=== PATIENT | male | born 1940 | race Caucasian/White ===

== ENCOUNTER → 2017-03-04 | Outpatient (CLI) | payer MEDICARE, OTHER ==
[~2017-03-04] MED LIST: ASPI-1441 PO; ASPI-1471 PO; ASPI81TA94 PO; BLOO-1318 MC; CALC-635 PO; CALC1TAB46 PO; CALC500T42 PO; CIPR-214 PO; EZE10 PO; FISH OIL; GEMF600T91 PO; GLY25 PO; GLY5 PO; LEVO100T7 PO; LEVO200T44 PO; MET500 PO; METF-420 PO; OMEG-11 PO; OMEG1CAP60 PO; OXC300 PO; OXCA300T44 PO; OXYG1EAC; PER PO; PHEN100 PO; PHEN100C82 PO; PNEI IJ; WAR2 PO; [UNRECOGNIZED DRUG - OTHER] SC
[2017-03-04 11:39] LABS: INR 1.98
== END ==
LOC: LAB 11:15
PROVIDERS: ATTEND Physician Assistant Surgical
DX: Z79.01 Long term (current) use of anticoagulants (principal)
CPT/HCPCS: 36415; 85610

== ENCOUNTER → 2017-03-08 | Outpatient (CLI) | payer MEDICARE, OTHER ==
[2017-03-08 11:42] LABS: INR 2.96
== END ==
LOC: LAB 11:10
PROVIDERS: ATTEND Physician Assistant Surgical
DX: Z51.81 Encounter for therapeutic drug level monitoring (principal); Z79.01 Long term (current) use of anticoagulants
CPT/HCPCS: 36415; 85610

== ENCOUNTER → 2017-03-17 | Outpatient (CLI) | payer MEDICARE, OTHER ==
[2017-03-17 12:04] LABS: INR 1.1
== END ==
LOC: LAB 11:15
PROVIDERS: ATTEND Physician Assistant Surgical
DX: Z51.81 Encounter for therapeutic drug level monitoring (principal); Z79.01 Long term (current) use of anticoagulants
CPT/HCPCS: 36415; 85610

== ENCOUNTER → 2018-08-01 | Outpatient (CLI) | payer MEDICARE, OTHER ==
[~2018-08-01] MED LIST changes: -GEMF600T91 PO; +GEMF600T96 PO; +LEVO125T77 PO; +LEVO175T42 PO; -METF-420 PO; +METF-452 PO; +METH4TAB66 PO
[2018-08-01 13:24] LABS: PLATELET COUNT, AUTOMATED 429 K/uL (150-450)
[2018-08-01 13:28] LABS: LDL CHOLESTEROL 54 mg/dl
--- NOTE | 2018-08-01 14:01 | EKG ---
FACILITY: [facility] PATIENT NAME: LIZA CASTANON : [id number] MR: [id number] V: [id number] EXAM DATE: ORDERING PHYSICIAN: DONTE MCKEON TECHNOLOGIST: SHERYL Stroud Reason : Blood Pressure : / mmHG Vent. Rate : 067 BPM Atrial Rate : 067 BPM P-R Int : 244 ms QRS Dur : 102 ms QT Int : 408 ms P-R-T Axes : 025 -54 029 degrees QTc Int : 431 ms Sinus rhythm with 1st degree AV block Left axis deviation Abnormal ECG No previous ECGs available Referred By: ROB Confirmed By:
--- NOTE | 2018-08-01 14:12 | RADIOLOGY IMAGING REPORT ---
FACILITY: [facility] PATIENT NAME: Yakov Sanford : 1940 MR: [id number] V: [id number] EXAM DATE: ORDERING PHYSICIAN: DONTE MCKEON TECHNOLOGIST: Location: [facility] Patient: Yakov Sanford : 1940 Visit/Account:[id number] Date of Sevice: 08/01/2018 CHEST PA LAT HISTORY: Dyspnea. COMPARISON: March,. FINDINGS: Cardiomediastinal contours: The heart size is normal. Lungs and pleura: There is no finding of an infiltrate, lymphadenopathy or pleural effusion. Bones/soft tissues: There are fractures involving ribs 6 and 7 on the right side. They are chronic i n nature and well-healed. There has been prior surgery in the glenoid process on the right side. Is a calcified loose body in the right glenohumeral joint. IMPRESSION: 1. No active disease in chest. 2. Healed rib fractures on the right side PA Report Dictated By: David Snow MD at 08/01/2018 2:06 PM Report E-Signed By: David Snow MD at 08/01/2018 2:07 PM WSN:[id number]
== END ==
LOC: LAB 13:01
PROVIDERS: ATTEND Emergency Medicine
DX: R94.31 Abnormal electrocardiogram [ECG] [EKG] (principal); I44.0 Atrioventricular block, first degree; R07.9 Chest pain, unspecified; R06.00 Dyspnea, unspecified; E03.9 Hypothyroidism, unspecified; E11.9 Type 2 diabetes mellitus without complications; Z83.49 Family history of other endocrine, nutritional and metabolic diseases; E87.5 Hyperkalemia; G40.909 Epilepsy, unspecified, not intractable, without status epilepticus
CPT/HCPCS: 36415; 71046; 80185; 82040; 82247; 82310; 82374; 82435; 82465; 82565; 82947; 83036; 83540; 83550; 83718; 83880; 84075; 84132; 84155; 84295; 84443; 84450; 84460; 84478; 84484; 84520; 85025; 85379

== ENCOUNTER → 2018-08-02 | Outpatient (CLI) | payer MEDICARE, OTHER ==
[~2018-08-02] MED LIST changes: +FERR325T24 PO; +NAPR220C12 PO
[2018-08-02 11:59] LABS: PLATELET COUNT, AUTOMATED 412 K/uL (150-450)
== END ==
LOC: LAB 10:49
PROVIDERS: ATTEND Emergency Medicine
DX: D64.9 Anemia, unspecified (principal); E11.9 Type 2 diabetes mellitus without complications
CPT/HCPCS: 36415; 82009; 85025

== ENCOUNTER → 2018-08-08 | Outpatient (CLI) | payer MEDICARE, OTHER ==
[~2018-08-08] MED LIST changes: +DEXTROSE 5%(*) 100 ML BAG 100 ML IVPB PRN; +IOPAMIDOL 76% 100 ML INFUS BTL 100 ML ONE; +LIDOCAINE/SOD BICARB 8.4% SYR ID PRN; +NS(*) 0.9% 100 ML BAG 100 ML IVPB PRN; +NS(*) 0.9% 1000 ML BAG 1,000 ML IV PRN
[2018-08-08 13:02] VITALS: BP 141/70
[2018-08-08 13:39] VITALS: BP 138/63
[2018-08-08 13:41] VITALS: BP 127/58
[2018-08-08 13:43] VITALS: BP 132/58
== END ==
LOC: SPU 12:26
PROVIDERS: ATTEND Emergency Medicine
DX: E86.0 Dehydration (principal)
CPT/HCPCS: 96360; J7030

== ENCOUNTER 2018-08-11 00:28 | Day surgery (SDC) | payer MEDICARE, OTHER ==
[2018-08-11] VITALS (9 sets, daily range): BP systolic 103–145; BP diastolic 52–72
[~2018-08-11] VITALS: Ht 175.3 cm; Wt 85.3 kg
[~2018-08-11 00:28] MED LIST changes: -DEXTROSE 5%(*) 100 ML BAG 100 ML IVPB PRN; -IOPAMIDOL 76% 100 ML INFUS BTL 100 ML ONE; -LIDOCAINE/SOD BICARB 8.4% SYR ID PRN; -NS(*) 0.9% 100 ML BAG 100 ML IVPB PRN; -NS(*) 0.9% 1000 ML BAG 1,000 ML IV PRN
[2018-08-11] MEDS ORDERED: NORMOSOL R SOLN(*) 1000 ML BAG 1,000 ML IV PRN (06:30)
[2018-08-11] MEDS ORDERED: LIDOCAINE/SOD BICARB 8.4% SYR ID ONE (06:30)
[2018-08-11] MEDS ORDERED: PROPOFOL EMUL(*) 10MG/ML 20 ML 20 ML ONE ×2 (07:11→07:38)
--- NOTE | 2018-08-11 08:12 | NUR ---
0759 SBAR REPORT WAS RECEIVED FROM KARINA FLOWERS AND DR. MARTINEZ. LUNGS ARE CLEAR. HE ARRIVED ON 3 LITERS HIGH FLOW O2. BOWEL SOUNDS ARE HYPERACTIVE. UNABLE TO ASSESS PAIN OR NAUSEA AT THIS TIME. PATIENT CONTINUES TO SLEEP 08 PATIENT WOKE UP. HE DENIES ANY PAIN OR NAUSEA. HE STATES HE IS JUST DROWSY. 08 SBAR REPORT WAS GIVEN TO Saul PARIS
--- NOTE | 2018-08-11 08:16 | NUR ---
0814 PATIENT WAS MOVED TO ROOM AIR AND IS TOLERATING THIS WELL.
--- NOTE | 2018-08-11 08:42 | NUR ---
PT. PLACED ON RA. RESTING. VO FROM DR. ROSA TO KEEP NPO.
--- NOTE | 2018-08-11 09:04 | Short(Outpt) Discharge Summary ---
Discharge Summary Reason for Hosp/Final Diag: (1) Anemia Hospital Course & Plan: pt presented for egd/colonoscopy. mass found in colon. d/c home after ct and labwork. Departure Discharge to: Home Discharge Instructions Home Meds Active Scripts Levothyroxine Sodium (SYNTHROID) 125 Mcg Tablet, 125 MCG PO QDAY, #45 TAB Prov:DONTE MCKEON MD 08/01/18 Glyburide (GLYBURIDE) 5 Mg Tab, 2 TAB PO BID, #360 TAB 0 Refills Prov:AKIN ZHANG MD 03/23/18 Phenytoin Sodium Extended (DILANTIN) 100 Mg Capsule, 2 CAP PO BID, #360 CAPSULE 3 Refills Prov:AKIN ZHANG MD 03/15/18 Metformin Hcl (METFORMIN HCL) 1,000 Mg Tablet, 1 TAB PO BID, #180 TAB 3 Refills Prov:AKIN ZHANG MD 03/15/18 Gemfibrozil (GEMFIBROZIL) 600 Mg Tablet, 1 TAB PO BID, #180 TAB 3 Refills Prov:AKIN ZHANG MD 03/15/18 Oxcarbazepine (TRILEPTAL) 300 Mg Tablet, 3 TAB PO QDAY, #270 TAB 3 Refills Prov:AKIN ZHANG MD 10/19/17 One Touch Ultra Test Strips (ONE TOUCH ULTRA TEST STRIPS) 1 Each Strip, 100 STRIP MC monthly, #100 STRIP 3 Refills DX:E11.9 use to test BS once daily Prov:AKIN ZHANG MD 04/13/17 Reported Medications Ferrous Sulfate (IRON) 325 Mg Tablet, 325 MG PO 08/03/18 Naproxen Sodium (ALEVE) 220 Mg Capsule, 220 MG PO QDAY, CAPSULE 08/03/18 Diet: Regular Activity: As Tolerated Special Instructions: we will call you with results ALEC ROSA Aug 11, 2018 09:04
[2018-08-11 09:33] LABS: PLATELET COUNT, AUTOMATED 386 K/uL (150-450)
--- NOTE | 2018-08-11 10:08 | NUR ---
pt. to radiology for ct scan. labs done.
--- NOTE | 2018-08-11 10:30 | NUR ---
PT. RETURNED FROM RADIOLOGY. INSTRUCTED OKAY TO DRESS.
--- NOTE | 2018-08-11 10:40 | NUR ---
DISCHARGE INSTRUCTIONS REVIEWED. PT. INSTRUCTED ON METFORMIN USE POST CT SCAN AND ENCOURAGED TO DRINK FLUIDS.
--- NOTE | 2018-08-11 11:07 | RADIOLOGY IMAGING REPORT ---
FACILITY: PATIENT NAME: Yakov Sanford : 1940 MR: [id number] V: [id number] EXAM DATE: ORDERING PHYSICIAN: ALEC ROSA TECHNOLOGIST: [place] [facility] [place]: Yakov Sanford : 1940 Visit/Account:[id number] Date of Sevice: 08/11/2018 CT CHEST ABDOMEN PELVIS W/CON HISTORY: Colon mass TECHNIQUE: CT chest, abdomen and pelvis with intravenous contrast. Contiguous helical images was per formed from the lung apices to the symphysis pubis. One of the following dose optimization techniques was utilized in the performance of this exam: Autom ated exposure control; adjustment of the mA and/or kV according to the patient's size; or use of an i terative reconstruction technique. Specific details can be referenced in the facility's radiology C T exam operational policy. CONTRAST: 75 cc of Isovue-370 COMPARISON: None. FINDINGS: CHEST: Heart/vessels: Subtle hypodensities in the interventricular septum and may indicate a prior infarct. There is calcification of the LAD. Mediastinum: Negative. Lymph nodes: Small mediastinal lymph nodes are noted. Lungs/pleura: Some mild subpleural interstitial prominence is noted could indicate mild interstitial lung disease. Within this setting there is some very small subpleural nodules primarily in the upper lobes measuring approximately 2 to 3 mm which have a benign appearance. No definite pulmonary metast asis. Bones/soft tissues: Patient is osteopenic with degenerative changes. Mild superior plate compression deformity at T4 is of uncertain chronicity. ABDOMEN/PELVIS: Hepatobiliary: There are at least 5 hepatic metastasis with heterogeneous hypodense liver masses. Th yfn will be described below. Segment 4A/1 lesion measures 3 x 2.4 cm () Segment 5/8 lesion measures 1.8 x 1.5 cm () Segment 6 lesion measures 1.8 x 1.6 cm () Segment 6 lesion measures 2 x 1.8 cm () Segment 6 lesion measures 2 x 1.6 cm () The gallbladder is absent. Spleen: Negative. Adrenals: Negative. Kidneys/: Negative. Pancreas: Negative. GI: There is an area of circumferential thickening of the hepatic flexure of the colon measuring 4 c m in length likely the primary neoplasm. Transmural extension of tumor is suspected. No evidence for pathologic regional adenopathy. Patient also has diverticulosis. Vessels/spaces/nodes: Atherosclerotic calcification is noted. Bones/soft tissues: Prominence L4-5 posterior left paracentral disc extrusion is noted measures 1.8 x 1.2 cm. There is effacement of the left L4 nerve root. T12 compression fracture involves 20% of th e vertebral body height. Patient has bilateral hip arthroplasties. IMPRESSION: 1. Circumferential thickening of the hepatic flexure of the colon extending over distance of nearly 4 cm likely the primary colon neoplasm. Transmural extension of tumor is suspected. No pathologic reg ional adenopathy. 2. At least 5 hepatic metastases are identified and described above. 3. No definite metastatic disease elsewhere. 4. Prominent disc extrusion at L4-5 extending into the left paracentral recess. If the patient is hav ing symptoms of back pain, consider an MRI of the lumbar spine. Report Dictated By: Bradley Dhillon MD at 08/11/2018 10:36 AM Report E-Signed By: Bradley Dhillon MD at 08/11/2018 11:03 AM WSN:[id number]
== END 2018-08-11 10:50 | disposition home or self-care (01) ==
LOC: OR 00:28
PROVIDERS: ATTEND Surgery
DX: K29.70 Gastritis, unspecified, without bleeding (principal); C18.2 Malignant neoplasm of ascending colon
CPT/HCPCS: 00813; 36415; 36416; 43239; 45380; 45385; 71260; 74177; 82378; 82948; 85025; 87077; 88305; 88342; J2704; Q9967; 82040; 82247; 82310; 82374; 82435; 82565; 82947; 84075; 84132; 84155; 84295; 84450; 84460; 84520

== ENCOUNTER 2018-09-04 15:33 | Emergency (ER) | payer MEDICARE, OTHER ==
--- NOTE | 2018-09-04 15:41 | ER Report ---
History and Physical Time Seen By MD: 15:39 HPI/ROS CHIEF COMPLAINT: Hyperkalemia HISTORY OF PRESENT ILLNESS: 77-year-old male patient presents to emergency room with complaint of hyperkalemia. Patient states that he has had hyperkalemia for the past couple weeks. He was seen at the cancer center and received an iron infusion for his anemia. He states that at that time they rechecked his potassium. He is found to have potassium of 6.8 and was referred to emergency room for further evaluation. Patient denies any fevers, chills, nausea, vomiting or diarrhea. He states that he has taken any medication for this. He states he feels fine at this time. REVIEW OF SYSTEMS: Respiratory: No cough, no dyspnea. Cardiovascular: No chest pain, no palpitations. Gastrointestinal: No vomiting, no abdominal pain. Musculoskeletal: No back pain. Allergies: Coded Allergies: influenza virus vaccine, specific (Unverified Allergy, Intermediate, fever, 12/20/17) Home Meds Active Scripts Glyburide (GLYBURIDE) 5 Mg Tab, 2 TAB PO BID, #60 TAB 0 Refills Prov:DONTE MCKEON MD 08/24/18 Levothyroxine Sodium (SYNTHROID) 125 Mcg Tablet, 125 MCG PO QDAY, #45 TAB Prov:DONTE MCKEON MD 08/01/18 Phenytoin Sodium Extended (DILANTIN) 100 Mg Capsule, 2 CAP PO BID, #360 CAPSULE 3 Refills Prov:AKIN ZHANG MD 03/15/18 Metformin Hcl (METFORMIN HCL) 1,000 Mg Tablet, 1 TAB PO BID, #180 TAB 3 Refills Prov:AKIN ZHANG MD 03/15/18 Gemfibrozil (GEMFIBROZIL) 600 Mg Tablet, 1 TAB PO BID, #180 TAB 3 Refills Prov:AKIN ZHANG MD 03/15/18 Oxcarbazepine (TRILEPTAL) 300 Mg Tablet, 3 TAB PO QDAY, #270 TAB 3 Refills Prov:AKIN ZHANG MD 10/19/17 One Touch Ultra Test Strips (ONE TOUCH ULTRA TEST STRIPS) 1 Each Strip, 100 STRIP MC monthly, #100 STRIP 3 Refills DX:E11.9 use to test BS once daily Prov:AKIN ZHANG MD 04/13/17 Reported Medications Ferrous Sulfate (IRON) 325 Mg Tablet, 325 MG PO 08/03/18 Naproxen Sodium (ALEVE) 220 Mg Capsule, 220 MG PO QDAY, CAPSULE 08/03/18 Past Medical/Surgical History Patient has past medical 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 Patient has a surgical history of cholecystectomy, left femur surgery, thumb amputation, bilateral hip replacement, bilateral shoulder surgery, right rotator cuff surgery, tonsillectomy. Reviewed Nurses Notes: Yes Smoking Status: Former Smoker, Heavy Tobacco Smoker Exposure to Second Hand Smoke?: Yes Hx Substance Use Disorder: No Hx Alcohol Use: No Constitutional Vital Sign - Last 24 Hours 09/04/18 09/04/18 09/04/18 09/04/18 15:33 15:37 15:41 16:00 Temp 98.3 Pulse ??? 87 Resp 20 B/P (MAP) 131/83 (99) 131/83 118/61 (80) Pulse Ox 94 O2 Delivery Room Air 09/04/18 09/04/18 09/04/18 16:03 16:30 16:33 Pulse 82 76 Resp 7 8 B/P (MAP) 110/64 (79) Pulse Ox 94 96 Physical Exam General Appearance: The patient is alert, has no immediate need for airway p rotection and no current signs of toxicity. Respiratory: Chest is non tender, lungs are clear to auscultation. Cardiac: regular rate and rhythm Gastrointestinal: Abdomen is soft and non tender, no masses, bowel sounds normal. Musculoskeletal: Neck: Neck is supple and non tender. Extremities have full range of motion and are non tender. Skin: No rashes or lesions. DIFFERENTIAL DIAGNOSIS: After history and physical exam differential diagnosis was considered for hyperkalemia, hyperglycemia. Medical Decision Making Data Points Result Diagram: 09/04/18 1556 09/04/18 1556 Laboratory Hematology Test 09/04/18 15:56 Red Blood Count 3.97 M/uL (4.00-5.60) Mean Corpuscular Volume 76.7 fL (80.0-96.0) Mean Corpuscular Hemoglobin 23.7 pg (26.0-33.0) Mean Corpuscular Hemoglobin Concent 30.9 g/dL (32.0-36.0) Red Cell Distribution Width 19.5 % (11.5-14.5) Mean Platelet Volume 5.9 fL (7.2-11.1) Neutrophils (%) (Auto) 63.7 % (39.4-72.5) Lymphocytes (%) (Auto) 20.6 % (17.6-49.6) Monocytes (%) (Auto) 11.9 % (4.1-12.4) Eosinophils (%) (Auto) 2.7 % (0.4-6.7) Basophils (%) (Auto) 1.1 % (0.3-1.4) Nucleated RBC Relative Count (auto) 0.0 /100WBC Neutrophils # (Auto) 4.7 K/uL (2.0-7.4) Lymphocytes # (Auto) 1.5 K/uL (1.3-3.6) Monocytes # (Auto) 0.9 K/uL (0.3-1.0) Eosinophils # (Auto) 0.2 K/uL (0.0-0.5) Basophils # (Auto) 0.1 K/uL (0.0-0.1) Nucleated RBC Absolute Count (auto) 0.00 K/uL Sodium Level 138 mmol/L (137-145) Potassium Level 5.4 mmol/L (3.5-5.0) Chloride Level 105 mmol/L (98-107) Carbon Dioxide Level 16 mmol/L (22-30) Blood Urea Nitrogen 19 mg/dl (9-21) Creatinine 0.80 mg/dl (0.66-1.25) Glomerular Filtration Rate Calc > 60.0 Random Glucose 303 mg/dl (75-110) Calcium Level 8.9 mg/dl (8.4-10.2) Total Bilirubin 0.5 mg/dl (0.2-1.3) Aspartate Amino Transf (AST/SGOT) 18 U/L (0-35) Alanine Aminotransferase (ALT/SGPT) 20 U/L (0-56) Alkaline Phosphatase 146 U/L (0-126) Troponin I < 0.012 ng/ml Total Protein 7.2 g/dl (6.3-8.2) Albumin 4.1 g/dl (3.5-5.0) Chemistry Test 09/04/18 15:56 White Blood Count 7.3 k/uL (4.5-11.0) Red Blood Count 3.97 M/uL (4.00-5.60) Hemoglobin 9.4 g/dL (14.0-18.0) Hematocrit 30.5 % (42.0-52.0) Mean Corpuscular Volume 76.7 fL (80.0-96.0) Mean Corpuscular Hemoglobin 23.7 pg (26.0-33.0) Mean Corpuscular Hemoglobin Concent 30.9 g/dL (32.0-36.0) Red Cell Distribution Width 19.5 % (11.5-14.5) Platelet Count 434 K/uL (150-450) Mean Platelet Volume 5.9 fL (7.2-11.1) Neutrophils (%) (Auto) 63.7 % (39.4-72.5) Lymphocytes (%) (Auto) 20.6 % (17.6-49.6) Monocytes (%) (Auto) 11.9 % (4.1-12.4) Eosinophils (%) (Auto) 2.7 % (0.4-6.7) Basophils (%) (Auto) 1.1 % (0.3-1.4) Nucleated RBC Relative Count (auto) 0.0 /100WBC Neutrophils # (Auto) 4.7 K/uL (2.0-7.4) Lymphocytes # (Auto) 1.5 K/uL (1.3-3.6) Monocytes # (Auto) 0.9 K/uL (0.3-1.0) Eosinophils # (Auto) 0.2 K/uL (0.0-0.5) Basophils # (Auto) 0.1 K/uL (0.0-0.1) Nucleated RBC Absolute Count (auto) 0.00 K/uL Glomerular Filtration Rate Calc > 60.0 Calcium Level 8.9 mg/dl (8.4-10.2) Total Bilirubin 0.5 mg/dl (0.2-1.3) Aspartate Amino Transf (AST/SGOT) 18 U/L (0-35) Alanine Aminotransferase (ALT/SGPT) 20 U/L (0-56) Alkaline Phosphatase 146 U/L (0-126) Troponin I < 0.012 ng/ml Total Protein 7.2 g/dl (6.3-8.2) Albumin 4.1 g/dl (3.5-5.0) EKG/Imaging EKG Interpretation 12 lead EKG: Rhythm: Sinus rhythm with first-degree AV block, ventricular rate of 82 bpm [place]: Left axis deviation QRS: normal ST segments: normal ED Course/Re-evaluation ED Course Patient is admitted and examined, history and physical were obtained. Differential diagnoses were considered. On examination lungs are clear, heart is regular, abdomen is soft and nontender. An EKG was done, an IV was started, a CBC, CMP were done. EKG showed a normal sinus rhythm. The lab work was positive for an elevated potassium of 5.3. No significant better than he was previously. With EKG being normal, the potassium being down to 5.3 we will go ahead and discharge patient home at this time. He is to follow-up with his primary care provider in the next week. He is return to the cancer Center as per schedule. Patient verbalized understanding and agreement with plan. Decision to Disposition Date: Sep 04, 2018 Decision to Disposition Time: 16:39 Depart Departure Latest Vital Signs Vital Signs Date Time Temp Pulse Resp B/P (MAP) Pulse Ox O2 Delivery O2 Flow Rate FiO2 09/04/18 16:33 76 8 96 09/04/18 16:30 110/64 (79) 09/04/18 15:41 98.3 Room Air Impression: Primary Impression: Hyperkalemia Condition: Improved Disposition: HOME OR SELF-CARE Referrals: DONTE MCKEON MD (PCP) Patient Instructions: Hyperkalemia (ED) Additional Instructions: Increase fluid intake. Get plenty of rest. Follow up with your primary care provider in the next week. Follow up with the cancer center as previously scheduled. Return to the ER if condition worsens. Continue with your current medications. DUSTIN ERVIN Sep 04, 2018 15:41
--- NOTE | 2018-09-04 15:55 | EKG ---
FACILITY: [facility] - [place] PATIENT NAME: LIZA CASTANON : [id number] MR: [id number] V: [id number] EXAM DATE: ORDERING PHYSICIAN: DUSTIN ERVIN TECHNOLOGIST: Test Reason : Blood Pressure : / mmHG Vent. Rate : 082 BPM Atrial Rate : 082 BPM P-R Int : 228 ms QRS Dur : 096 ms QT Int : 376 ms P-R-T Axes : 023 -73 035 degrees QTc Int : 439 ms Sinus rhythm with 1st degree AV block Left axis deviation Inferior-posterior infarct , age undetermined Abnormal ECG When compared with ECG of 01-AUG-2018 12:10, Relatively unchanged Confirmed by DOMINGO MONROY ([id number]) on 09/04/2018 5:14:34 PM Referred By: Confirmed By:DOMINGO MONROY
[2018-09-04 16:05] LABS: PLATELET COUNT, AUTOMATED 434 K/uL (150-450)
[2018-09-04 16:30] VITALS: BP 110/64
[2018-09-05] MEDS ORDERED: INSU100I30 SQ (09:01)
[2018-09-05] MEDS ORDERED: LEVE500T73 PO (09:03)
[2018-09-11] MEDS ORDERED: OXCA300T44 PO (08:10)
[2018-09-11] MEDS ORDERED: [UNRECOGNIZED DRUG - CODE] PO (08:10)
== END 2018-09-04 16:57 | disposition home or self-care (01) ==
LOC: ER 15:38
DX: E87.6 Hypokalemia (principal)
CPT/HCPCS: 82040; 82247; 82310; 82374; 82435; 82565; 82947; 84075; 84132; 84155; 84295; 84450; 84460; 84484; 84520; 85025; 93005; 99283

== ENCOUNTER → 2018-09-13 | Outpatient (CLI) | payer MEDICARE, OTHER ==
[~2018-09-13] MED LIST changes: +INSU100I30 SQ; +ISOP1TOW MC; +LEVE500T73 PO; +LORA-1455 PO; +ONDA8TAB91 PO; +PEN1DIS. MC; +PROC10TA4 PO; +TRAM-420 PO; +[UNRECOGNIZED DRUG - CODE] PO
== END ==
LOC: LAB 08:33
PROVIDERS: ATTEND Emergency Medicine
DX: C19 Malignant neoplasm of rectosigmoid junction (principal); E03.9 Hypothyroidism, unspecified
CPT/HCPCS: 36415; 82040; 82247; 82310; 82374; 82435; 82565; 82947; 83036; 84075; 84132; 84155; 84295; 84443; 84450; 84460; 84520

== ENCOUNTER 2018-09-14 01:07 | Day surgery (SDC) | payer MEDICARE, OTHER ==
[2018-09-14] VITALS (8 sets, daily range): BP systolic 115–145; BP diastolic 60–74
[~2018-09-14] VITALS: Ht 175.3 cm; Wt 88.0 kg
[~2018-09-14 01:07] MED LIST changes: -TRAM-420 PO
[2018-09-14] MEDS ORDERED: FAMOTIDINE 20 MG TAB PO ONE (06:45)
[2018-09-14] MEDS ORDERED: LIDOCAINE/SOD BICARB 8.4% SYR ID ONE (06:45)
[2018-09-14] MEDS ORDERED: ceFAZolin(*) 2GM/D5W 50ML 50 ML IVPB ONE (06:45)
[2018-09-14] MEDS ORDERED: MIDAZOLAM 2 MG/2 ML VIAL IVP PRN (06:45)
[2018-09-14] MEDS ORDERED: NORMOSOL R SOLN(*) 1000 ML BAG 1,000 ML IV PRN (06:45)
[2018-09-14] MEDS ORDERED: INSULIN ASPART 100 UN/ML VIAL SUBQ ONE (06:55)
[2018-09-14] MEDS ORDERED: NS(*) 0.9% 10 ML VIAL 20 ML ONE ×2 (07:23→07:38)
[2018-09-14] MEDS ORDERED: HEPARIN (PORC) 5000 UN/ML VIAL ONE (07:23)
[2018-09-14] MEDS ORDERED: ROPIVACAINE 0.5% 20 ML VIAL ONE (07:23)
[2018-09-14] MEDS ORDERED: ONDANSETRON 4 MG/2 ML VIAL ONE (07:35)
[2018-09-14] MEDS ORDERED: PROPOFOL EMUL(*) 10MG/ML 20 ML 20 ML ONE (07:35)
[2018-09-14] MEDS ORDERED: DEXAMETHASONE SOD PHOS 10MG/ML ONE (07:35)
[2018-09-14] MEDS ORDERED: NS(*) 0.9% 10 ML VIAL 10 ML ONE (07:37)
[2018-09-14] MEDS ORDERED: BUPIVACAINE/EPI 0.5% 50ML VIAL INFIL ONE (07:55)
[2018-09-14] MEDS ORDERED: BUPIVACAINE 0.5% INJ 50ML VIAL INFIL ONE (07:55)
[2018-09-14] MEDS ORDERED: TRAM-420 PO (08:50)
--- NOTE | 2018-09-14 08:55 | Short(Outpt) Discharge Summary ---
Discharge Summary Reason for Hosp/Final Diag: (1) Colon cancer Hospital Course & Plan: pt presented for mediport placement. he tolerated the procedure well and will be discharged home when criteria met. Departure Discharge to: Home Discharge Instructions Home Meds Active Scripts Tramadol Hcl (TRAMADOL HCL) 50 Mg Tablet, 50 MG PO Q6H PRN for PAIN, #10 TAB Prov:SHELLEYALEC HANDY Susan 09/14/18 Isopropyl Alcohol (ALCOH-WIPE) 1 Each [place]elette, EACH MC DAILY, #1 Prov:DONTE MCKEON MD 09/13/18 Pen Needle, Diabetic, Safety (PEN NEEDLE) 1 Each Dis.needle, EACH MC DAILY, #1 Prov:DONTE MCKEON MD 09/13/18 Lorazepam (ATIVAN) 0.5 Mg Tablet, 0.5 MG PO Q6H PRN for ANXIETY for 30 Days, #30 TAB 1 Refill Prov:SEBASTIAN SHERFIF EDGE BLACKER-C 09/13/18 Ondansetron Hcl (ZOFRAN) 8 Mg Tablet, 8 MG PO Q8H PRN for NAUSEA for 30 Days, #30 TAB 3 Refills Prov:SEBASTIAN SHERIFF EDGE BLACKER-C 09/13/18 Prochlorperazine Maleate (Compazine) 10 Mg Tablet, 1 TAB PO Q6-8H PRN for NAUSEA for 30 Days, #30 TAB 3 Refills Prov:SEBASTIAN SHERIFF EDGE BLACKER-C 09/13/18 Insulin Glargine 100 Un/Ml Pen (LANTUS SOLOSTAR PEN) 100 Unit/1 Ml Insuln.pen, 10 UNIT SQ QHS, #1 PEN 11 Refills Prov:DONTE MCKEON MD 09/13/18 Levetiracetam (LEVETIRACETAM) 500 Mg Tablet, 500 MG PO BID, #60 TAB 5 Refills Prov:DONTE MCKEON MD 09/13/18 Glyburide (GLYBURIDE) 5 Mg Tab, 2 TAB PO BID, #60 TAB 0 Refills Prov:DONTE MCKEON MD 08/24/18 Levothyroxine Sodium (SYNTHROID) 125 Mcg Tablet, 125 MCG PO QDAY, #45 TAB Prov:DONTE MCKEON MD 08/01/18 Metformin Hcl (METFORMIN HCL) 1,000 Mg Tablet, 1 TAB PO BID, #180 TAB 3 Refills Prov:AKIN ZHANG MD 03/15/18 Gemfibrozil (GEMFIBROZIL) 600 Mg Tablet, 1 TAB PO BID, #180 TAB 3 Refills Prov:AKIN ZHANG MD 03/15/18 One Touch Ultra Test Strips (ONE TOUCH ULTRA TEST STRIPS) 1 Each Strip, 100 STRIP MC monthly, #100 STRIP 3 Refills DX:E11.9 use to test BS once daily Prov:AKIN ZHANG MD 04/13/17 Reported Medications Naproxen Sodium (ALEVE) 220 Mg Capsule, 220 MG PO QDAY, CAPSULE 08/03/18 Discontinued Reported Medications Oxcarbazepine (TRILEPTAL) 300 Mg Tablet, 300 MG PO BID 09/11/18 Phenytoin Sodium Extended (PHENYTOIN SODIUM EXTENDED) 200 Mg Capsule, 200 MG PO BID, CAPSULE 09/11/18 Ferrous Sulfate (IRON) 325 Mg Tablet, 325 MG PO 08/03/18 Discontinued Scripts Levetiracetam (LEVETIRACETAM) 500 Mg Tablet, 500 MG PO BID, #60 TAB 11 Refills Prov:DONTE MCKEON MD 09/05/18 Insulin Glargine 100 Un/Ml Pen (LANTUS SOLOSTAR PEN) 100 Unit/1 Ml Insuln.pen, 10 UNIT SQ DAILY, #1 PEN 11 Refills Prov:DONTE MCKEON MD 09/05/18 Diet: Regular Activity: As Tolerated Special Instructions: ok to shower tomorrow. take stool softener if taking pain meds. f/u oncology as instructed. ALEC RSOA Sep 14, 2018 08:55
--- NOTE | 2018-09-14 09:59 | RADIOLOGY IMAGING REPORT ---
FACILITY: [facility] PATIENT NAME: Yakov Sanford : 1940 MR: [id number] V: [id number] EXAM DATE: ORDERING PHYSICIAN: ALEC ROSA TECHNOLOGIST: Location: [facility] [place] Patient: Yakov Sanford : 1940 Visit/Account:[id number] Date of Sevice: 09/14/2018 Exam type: FLUORO NG TUBE PLACEMENT History: PORT PLACEMENT Comparison: None. Findings: Two intraoperative views of the upper right thorax were submitted. Images demonstrate placement of a right-sided implanted port. On image #2 the distal tip projects over the expected location of the c aval atrial junction. The total dose area product is 3.0575 [place] per centimeter squared IMPRESSION: 1. As above Report Dictated By: Chanelle Rodas MD at 09/14/2018 9:52 AM Report E-Signed By: Chanelle Rodas MD at 09/14/2018 9:53 AM WSN:[email or web address]
[2018-09-14] MEDS ORDERED: INSULIN HUM REG 100 UN/ML 3 ML VIAL SC ONE (10:15)
--- NOTE | 2018-09-14 11:32 | RADIOLOGY IMAGING REPORT ---
FACILITY: [facility] PATIENT NAME: Yakov Sanford : 1940 MR: [id number] V: [id number] EXAM DATE: ORDERING PHYSICIAN: ALEC ROSA TECHNOLOGIST: Location: [facility] - [place] Patient: Yakov Sanford : 1940 Visit/Account:[id number] Date of Sevice: 09/14/2018 Exam type: CHEST SINGLE AP History: port placement Comparison: July 24, 2018. Findings: There is some placement of a right-sided implanted port with the distal tip projecting over the caval atrial junction. No pneumothorax is seen. There is no evidence of acute pulmonary consolidation or pleural effusion. The cardiac silhouette is normal in size. There are postsurgical changes of the right shoulder IMPRESSION: 1. Interval placement of a implanted right IJ port that appears to been good position Report Dictated By: Chanelle Rodas MD at 09/14/2018 11:24 AM Report E-Signed By: Chanelle Rodas MD at 09/14/2018 11:25 AM WSN:[email or web address]
[2018-09-19] MEDS ORDERED: LEVO125T77 PO (16:44)
[2018-09-26] MEDS ORDERED: OMEP-137 PO (14:24)
[2018-09-27] MEDS ORDERED: INSU100I28 SQ (10:30)
--- NOTE | 2018-09-28 10:34 | OPERATIVE REPORT 1 ---
EVENT DATE: September 14, 2018 SURGEON: Lamonte Velez MD ANESTHESIOLOGIST: Charles Miramontes MD ANESTHESIA: General and local. DRIVER COURIER: None. PREOPERATIVE DIAGNOSIS Metastatic colon cancer. POSTOPERATIVE DIAGNOSIS Metastatic colon cancer. PROCEDURE PERFORMED Right internal jugular port-a-cath placement with ultrasound fluoroscopic guidance. FLUIDS IV crystalloid ESTIMATED BLOOD LOSS Minimal. SPECIMENS None. COMPLICATIONS None. INDICATIONS This is a 77-year-old male with metastatic colon cancer. He needs a Mediport placed for chemotherapy access. Risk and benefits of the procedure explained. Consent was signed. DESCRIPTION OF PROCEDURE The patient was taken to the operating room and placed in the supine position. General anesthesia was administered per the Anesthesia team. The patient prepped and draped in the normal sterile fashion. The patient was placed in Trendelenburg position. Using ultrasound guidance, the Cook needle was easily advanced into the right internal jugular vein. Dark red, nonpulsatile blood was returned. The guidewire was advanced and the Cook needle was removed. Fluoroscopy was used for appropriate placement of the guidewire. The table was then leveled. Local analgesia was injected in the right chest wall. A 3 cm transverse incision was made and an inferior pocket was created. A small incision was created on the underside of the guidewire. The port-a-cath had been put together and checked for leaks and there were no leaks and no defects. The tunneling device was used to pass the catheter from the right chest wall to the right neck incision. The catheter was secured in place with 2-0 Prolene stitches. The catheter was then cut to the appropriate length using fluoroscopy. the dilator and sheath were advanced over the guidewire. The guidewire and dilator were removed and the catheter was advanced through the sheath. The entire sheath was removed. Fluoroscopy confirmed appropriate placement of the tip of the catheter as well as a good curve in the neck. The catheter aspirated and flushed easily and it was flushed with Heparinized saline. 3-0 Vicryl deep dermal interrupted stitches were used to approximate the edges of the skin of chest wall wound and neck incision was closed with a running 4-0 Monocryl subcuticular stitches. Appropriate dressings were applied. The patient tolerated the procedure well. There were no complications. [facility]
[2018-10-04] MEDS ORDERED: INSU100I30 SQ (14:54)
== END 2018-09-14 09:25 | disposition home or self-care (01) ==
LOC: OR 01:07
PROVIDERS: ATTEND Surgery
DX: C78.5 Secondary malignant neoplasm of large intestine and rectum (principal); E11.9 Type 2 diabetes mellitus without complications
CPT/HCPCS: 36416; 36561; 71045; 77001; 82948; A9270; C1788; J1100; J1644; J1815; J2405; J2704; J3490; J0690; J2795

== ENCOUNTER 2018-10-18 17:31 | Emergency (ER) | payer MEDICARE, OTHER ==
[~2018-10-18 17:31] MED LIST changes: -LEVE100034 PO
[2018-10-18] MEDS ORDERED: NS(*) 0.9% 1000 ML BAG 1,000 ML IV ONE (17:37)
--- NOTE | 2018-10-18 17:38 | ER Report ---
History and Physical Time Seen By MD: 17:34 Hx. of Stated Complaint: SEIZURE AT HOME LASTING ABOUT A MINUTE. RECENT CHANGE TO SEIZURE MEDS. WAS ON DILANTIN/OXCARBAZEPINE AND NOW ON KEPPRA HPI/ROS CHIEF COMPLAINT: Seizure HISTORY OF PRESENT ILLNESS: 77-year-old male patient presents to emergency room with complaint of seizure. Patient states that he was unsure what happened. Slight states that he did have a tonic-clonic seizure which lasted approximately one minute. He did bite his tongue and has some pain there. Patient was on seizure medication for quite some time and then was recently changed last month. states that he was changed because the other medications inhibited the effectiveness of the chemotherapy that he is on. Patient denies any fevers, chills, nausea, vomiting or diarrhea. He has not taken any medication for this. REVIEW OF SYSTEMS: Respiratory: No cough, no dyspnea. Cardiovascular: No chest pain, no palpitations. Gastrointestinal: No vomiting, no abdominal pain. Musculoskeletal: No back pain. Allergies: Coded Allergies: influenza virus vaccine, specific (Unverified Allergy, Intermediate, fever, 10/18/18) Home Meds Active Scripts Insulin Aspart 100 Un/Ml Pen (NOVOLOG FLEXPEN) 100 Unit/1 Ml Insuln.pen, 4-10 UNIT SQ TID, #1 BOX 3 Refills 201 - 250 4 unit, 251 -300 5 unit, 301 - 350 6 unit, 351- 400 7 units, > 400 8 units. Prov:DONTE GEORGE MD 10/11/18 Omeprazole (OMEPRAZOLE) 20 Mg Tablet.dr, 20 MG PO QDAY for 30 Days, #30 TAB 3 Refills Prov:SEBASTIAN SHERIFF [employer]IV[employer]ITY EXTENSION SPECIALIST-C 09/26/18 Levothyroxine Sodium (SYNTHROID) 125 Mcg Tablet, 125 MCG PO QDAY, #90 TAB 3 Refills Prov:DONTE GEORGE MD 09/19/18 Tramadol Hcl (TRAMADOL HCL) 50 Mg Tablet, 50 MG PO Q6H PRN for PAIN, #10 TAB Prov:ALEC ROSA 09/14/18 Isopropyl Alcohol (ALCOH-WIPE) 1 Each Towelette, EACH MC DAILY, #1 Prov:DONTE GEORGE MD 09/13/18 Pen Needle, Diabetic, Safety (PEN NEEDLE) 1 Each Dis.needle, EACH MC DAILY, #1 Prov:DONTE GEORGE MD 09/13/18 Lorazepam (ATIVAN) 0.5 Mg Tablet, 0.5 MG PO Q6H PRN for ANXIETY for 30 Days, #30 TAB 1 Refill Prov:SEBASTIAN SHERIFF-C 09/13/18 Ondansetron Hcl (ZOFRAN) 8 Mg Tablet, 8 MG PO Q8H PRN for NAUSEA for 30 Days, #30 TAB 3 Refills Prov:SEBASTIAN 09/13/18 Prochlorperazine Maleate (Compazine) 10 Mg Tablet, 1 TAB PO Q6-8H PRN for NAUSEA for 30 Days, #30 TAB 3 Refills Prov:SEBASTIAN SHERIFF 09/13/18 Levetiracetam (LEVETIRACETAM) 500 Mg Tablet, 500 MG PO BID, #60 TAB 5 Refills Prov:DONTE GEORGE MD 09/13/18 Metformin Hcl (METFORMIN HCL) 1,000 Mg Tablet, 1 TAB PO BID, #180 TAB 3 Refills Prov:AKIN ZHANG MD 03/15/18 Gemfibrozil (GEMFIBROZIL) 600 Mg Tablet, 1 TAB PO BID, #180 TAB 3 Refills Prov:AKIN ZHANG MD 03/15/18 One Touch Ultra Test Strips (ONE TOUCH ULTRA TEST STRIPS) 1 Each Strip, 100 STRIP MC monthly, #100 STRIP 3 Refills DX:E11.9 use to test BS once daily Prov:AKIN ZHANG MD 04/13/17 Reported Medications Naproxen Sodium (ALEVE) 220 Mg Capsule, 220 MG PO QDAY, CAPSULE 08/03/18 Discontinued Scripts Insulin Lispro 100 Un/Ml Pen (HUMALOG 3 ML PEN) 100 Unit/1 Ml Insuln.pen, 4-10 UNIT SQ DAILY, #1 BOX 3 Refills 201 - 250 4 unit, 251 -300 5 unit, 301 - 350 6 unit, 351- 400 7 units, > 400 8 units. Prov:DONTE GEORGE MD 10/10/18 Past Medical/Surgical History Patient has a past medical history of seizures, cholecystitis, arthritis, left femur fracture, right shoulder fracture, type 2 diabetes, hypothyroidism, eczema, colon cancer. Patient has a surgical history of cholecystectomy, tonsillectomy, right rotator cuff surgery, femur repair, right thumb amputation, bilateral hip replacement. Patient has a family medical history of cancer. Reviewed Nurses Notes: Yes Hx Smoking: Yes (1PPD X30 YEARS) Smoking Status: Former Smoker, Heavy Tobacco Smoker Exposure to Second Hand Smoke?: Yes Hx Substance Use Disorder: No Hx Alcohol Use: No Constitutional Vital Sign - Last 24 Hours 10/18/18 10/18/18 10/18/18 10/18/18 17:34 18:00 19:00 19:30 Temp 98.3 Pulse 97 78 70 Resp 20 B/P (MAP) 143/82 127/77 (94) 120/67 (84) 123/63 (83) Pulse Ox 91 90 97 96 O2 Delivery Room Air 10/18/18 10/18/18 10/18/18 19:35 19:40 19:45 Pulse 79 76 76 Pulse Ox 97 97 98 Physical Exam General Appearance: The patient is alert, has no immediate need for airway protection and no current signs of toxicity. Respiratory: Chest is non tender, lungs are clear to auscultation. Cardiac: regular rate and rhythm Gastrointestinal: Abdomen is soft and non tender, no masses, bowel sounds normal. Musculoskeletal: Neck: Neck is supple and non tender. Extremities have full range of motion and are non tender. Skin: No rashes or lesions. DIFFERENTIAL DIAGNOSIS: After history and physical exam differential diagnosis was considered for a seizure including but not limited to electrolyte abnormality, alcohol withdrawal, medication noncompliance, head injury, and breakthrough seizure. Medical Decision Making Data Points Result Diagram: 10/18/18 1740 10/18/18 1849 Laboratory Hematology Test 10/18/18 17:40 White Blood Count 2.9 k/uL (4.5-11.0) L Red Blood Count 4.41 M/uL (4.00-5.60) Hemoglobin 12.8 g/dL (14.0-18.0) L Hematocrit 38.7 % (42.0-52.0) L Mean Corpuscular Volume 87.7 fL (80.0-96.0) Mean Corpuscular Hemoglobin 29.1 pg (26.0-33.0) Mean Corpuscular Hemoglobin Concent 33.1 g/dL (32.0-36.0) Red Cell Distribution Width 25.8 % (11.5-14.5) H Platelet Count 419 K/uL (150-450) Mean Platelet Volume 6.7 fL (7.2-11.1) L Neutrophils (%) (Auto) % (39.4-72.5) Lymphocytes (%) (Auto) % (17.6-49.6) Monocytes (%) (Auto) % (4.1-12.4) Eosinophils (%) (Auto) % (0.4-6.7) Basophils (%) (Auto) % (0.3-1.4) Nucleated RBC Relative Count (auto) /100WBC Neutrophils # (Auto) K/uL (2.0-7.4) Lymphocytes # (Auto) K/uL (1.3-3.6) Monocytes # (Auto) K/uL (0.3-1.0) Eosinophils # (Auto) K/uL (0.0-0.5) Basophils # (Auto) K/uL (0.0-0.1) Nucleated RBC Absolute Count (auto) K/uL Neutrophils % (Manual) 58 % (39.4-72.5) Lymphocytes % (Manual) 22 % (17.6-49.6) Monocytes % (Manual) 15 % (4.1-12.4) H Eosinophils % (Manual) 2 % (0.4-6.7) Basophils % (Manual) 3 % (0.3-1.4) H Platelet Estimate Normal Anisocytosis 3+ Peripheral Blood Smear Yes Y/N Chemistry Test 10/18/18 17:40 10/18/18 18:49 Potassium Level 4.5 mmol/L (3.5-5.0) Chloride Level 101 mmol/L (98-107) Carbon Dioxide Level 14 mmol/L (22-30) Blood Urea Nitrogen 20 mg/dl (9-21) Creatinine 1.10 mg/dl (0.66-1.25) Glomerular Filtration Rate Calc > 60.0 Random Glucose 207 mg/dl (75-110) Calcium Level 9.1 mg/dl (8.4-10.2) Magnesium Level 2.1 mg/dl (1.7-2.2) Total Bilirubin 0.5 mg/dl (0.2-1.3) Aspartate Amino Transf (AST/SGOT) 44 U/L (0-35) Alanine Aminotransferase (ALT/SGPT) 24 U/L (0-56) Alkaline Phosphatase 104 U/L (0-126) Total Protein 7.4 g/dl (6.3-8.2) Albumin 4.0 g/dl (3.5-5.0) Sodium Level 133 mmol/L (137-145) Toxicology Test 10/18/18 17:40 EKG/Imaging Imaging EXAMINATION: CT facial bones without IV contrast HISTORY: Jaw pain for 2 weeks. Colon cancer diagnosed 6 weeks ago. COMPARISON: 11/10/2006. TECHNIQUE: Axial images were obtained from the superior aspect of the orbits through the inferior aspect of mandible. Coronal and sagittal reformatted images were obtained from the axial source data. No IV contrast was administered. One of the following dose optimization techniques was utilized in the performance of this exam: Automated exposure control; adjustment of the mA and/or kV according to the patient's size; or use of an iterative reconstruction technique. Specific details can be referenced in the facility's radiology CT exam operational policy. FINDINGS: Soft Tissues: A small focal calcification is noted in the right submandibular gland. No significant soft tissue swelling or mass is identified Mandible / TMJ: No acute abnormality. The third molars are unerupted. Maxillae / pterygoid plates: Negative. Zygoma / zygomatic arches: Negative. Orbits: Negative. Nasal bones / nasal septum: Chronic mild contour irregularity of the nasal bones. Mild leftward deviation of the anterior nasal septum. Frontal bones: Negative. Sinuses: Mild mucosal thickening in the maxillary sinuses and ethmoid air cells. A small amount of fluid or granulation tissue in the inferior right mastoid air cells. Visualized brain: Negative. IMPRESSION: No evidence of acute pathology of the facial bones. Mild paranasal sinus mucosal disease. Opacification of a few of the inferior right mastoid air cells which may be due to fluid or granulation tissue. Report Dictated By: Russ Lowery MD at 10/18/2018 7:02 PM Report E-Signed By: Russ Lowery MD at 10/18/2018 7:14 PM ED Course/Re-evaluation ED Course Patient was admitted to an exam room, history of physical were obtained. Differential diagnoses were considered. On examination lungs are clear, heart is regular, abdomen soft nontender. An IV was started, a CBC, CMP, Keppra level, CT scan of the head was done. Lab results were unremarkable. Patient initially had an elevated sodium of 168. We did go ahead and repeat the lab work. Patient had a repeat sodium of 133. I did do a CT scan of the facial bones secondary to pain in the jaw. That was also negative. I discussed the case with Hi Snowden, who recommended follow-up with Dr. cruz. I discussed this with the patient and his and they verbalized understanding and agreement. We'll go ahead and discharge him at this time. We will not make any changes to his Keppra at this time waiting for her primary care to do that. Decision to Disposition Date: Oct 18, 2018 Decision to Disposition Time: 19:40 Depart Departure Latest Vital Signs Vital Signs Date Time Temp Pulse Resp B/P (MAP) Pulse Ox O2 Delivery O2 Flow Rate FiO2 10/18/18 19:45 76 98 10/18/18 19:30 123/63 (83) 10/18/18 17:34 98.3 20 Room Air Impression: Primary Impression: Seizure Condition: Improved Disposition: HOME OR SELF-CARE Referrals: DONTE GEORGE MD (PCP) Patient Instructions: Recurrent Seizures in Adults (ED) Additional Instructions: Get plenty of rest. Increase fluid intake. Follow up with your primary care provider in the next 2-4 days. Return to the ER if condition worsens. Continue with your current medications. Dr. George will decide what to do wtih naida Schumacher, the labs will be very beneficial to help with that decision. DUSTIN ERVIN Oct 18, 2018 17:38
[2018-10-18 17:59] LABS: PLATELET COUNT, AUTOMATED 419 K/uL (150-450)
--- NOTE | 2018-10-18 19:22 | RADIOLOGY IMAGING REPORT ---
FACILITY: [facility] PATIENT NAME: Yakov Sanford : 1940 MR: [id number] V: [id number] EXAM DATE: ORDERING PHYSICIAN: DUSTIN ERVIN TECHNOLOGIST: Location: [facility] - [place], [place] Patient: Yakov Sanford : 1940 Visit/Account:[id number] Date of Sevice: 10/18/2018 EXAMINATION: CT facial bones without IV contrast HISTORY: Jaw pain for 2 weeks. Colon cancer diagnosed 6 weeks ago. COMPARISON: 11/10/2006. TECHNIQUE: Axial images were obtained from the superior aspect of the orbits through the inferior as pect of mandible. Coronal and sagittal reformatted images were obtained from the axial source data. N o IV contrast was administered. One of the following dose optimization techniques was utilized in the performance of this exam: Autom ated exposure control; adjustment of the mA and/or kV according to the patient's size; or use of an i terative reconstruction technique. Specific details can be referenced in the facility's radiology C T exam operational policy. FINDINGS: Soft Tissues: A small focal calcification is noted in the right submandibular gland. No significant s oft tissue swelling or mass is identified Mandible / TMJ: No acute abnormality. The third molars are unerupted. Maxillae / pterygoid plates: Negative. Zygoma / zygomatic arches: Negative. Orbits: Negative. Nasal bones / nasal septum: Chronic mild contour irregularity of the nasal bones. Mild leftward devia tion of the anterior nasal septum. Frontal bones: Negative. Sinuses: Mild mucosal thickening in the maxillary sinuses and ethmoid air cells. A small amount of fl uid or granulation tissue in the inferior right mastoid air cells. Visualized brain: Negative. IMPRESSION: No evidence of acute pathology of the facial bones. Mild paranasal sinus mucosal disease. Opacification of a few of the inferior right mastoid air cells which may be due to fluid or granulati on tissue. Report Dictated By: Russ Lowery MD at 10/18/2018 7:02 PM Report E-Signed By: Russ Lowery MD at 10/18/2018 7:14 PM WSN:[id number]
[2018-10-18 19:30] VITALS: BP 123/63
[2018-10-19] MEDS ORDERED: LEVE100034 PO (09:51)
== END 2018-10-18 20:02 | disposition home or self-care (01) ==
LOC: ER 17:45
DX: R56.9 Unspecified convulsions (principal); E11.9 Type 2 diabetes mellitus without complications; E03.9 Hypothyroidism, unspecified
CPT/HCPCS: 70486; 80177; 83735; 85025; 96360; 96361; 99284; J7030; 82040; 82247; 82310; 82374; 82435; 82565; 82947; 84075; 84132; 84155; 84295; 84450; 84460; 84520

== ENCOUNTER → 2018-10-18 | Outpatient (CLI) | payer MEDICARE, OTHER ==
[~2018-10-18] MED LIST changes: +INSU100I28 SQ; +INSU100I35 SQ; +LEVE100034 PO; +OMEP-137 PO; +TRAM-420 PO
== END ==
LOC: AMB 17:03
PROVIDERS: ATTEND Nurse Practitioner
DX: R56.9 Unspecified convulsions (principal)
CPT/HCPCS: A0425; A0427

== ENCOUNTER 2018-10-27 14:47 | Inpatient (IN) | payer MEDICARE, OTHER ==
[~2018-10-27] VITALS: Ht 175.3 cm; Wt 78.0 kg
[~2018-10-27 14:47] MED LIST changes: +LEVE100034 PO; +MELO-207 PO
--- NOTE | 2018-10-27 14:55 | ER Report ---
History and Physical Time Seen By : 14:51 HPI/ROS History of metastatic colon cancer sent to the ED from the cancer center and PCM for admission for starvation ketosis. The pt. has not been eating due to a painful tongue. His tongue was painful from chemo, and then he had a seizure 10 days ago and he bit his tongue. He states that his tongue is painful, and he does not want to eat. He has tried Ensure, but only a few sips. He had a CO2 of 9 today on labs as well as an anion gap, so was sent to the ED. The pt. denies fever or abdominal pain. No chest pain. Scheduled for chemo on Tuesday. Remainder of the 14 system rev: Yes Allergies: Coded Allergies: influenza virus vaccine, specific (Unverified Allergy, Intermediate, fever, 10/27/18) Home Meds Active Scripts Insulin Aspart 100 Un/Ml Pen (NOVOLOG FLEXPEN) 100 Unit/1 Ml Insuln.pen, 4-10 UNIT SQ TID, #1 BOX 3 Refills 150-200: 4, 201-250: 6, 251-300: 8, 301 to 350: 10, 351-400: 11, >400 : 12 Prov:DONTE MCKEON MD 10/27/18 Meloxicam (MELOXICAM) 15 Mg Tablet, 15 MG PO QDAY, #30 TAB 5 Refills Prov:DONTE MCKEON MD 10/27/18 Levetiracetam (LEVETIRACETAM) 1,000 Mg Tablet, 1000 MG PO BID, #60 TAB Prov:DONTE MCKEON MD 10/19/18 Omeprazole (OMEPRAZOLE) 20 Mg Tablet.dr, 20 MG PO QDAY for 30 Days, #30 TAB 3 Refills Prov:SEBASTIAN SHERIFF FILTER PRESS TENDER HEAD-C 09/26/18 Levothyroxine Sodium (SYNTHROID) 125 Mcg Tablet, 125 MCG PO QDAY, #90 TAB 3 Refills Prov:DONTE MCKEON MD 09/19/18 Isopropyl Alcohol (ALCOH-WIPE) 1 Each Towelette, EACH MC DAILY, #1 Prov:DONTE MCKEON MD 09/13/18 Pen Needle, Diabetic, Safety (PEN NEEDLE) 1 Each Dis.needle, EACH MC DAILY, #1 Prov:DONTE MCKEON MD 09/13/18 Metformin Hcl (METFORMIN HCL) 1,000 Mg Tablet, 1 TAB PO BID, #180 TAB 3 Refills Prov:AKIN ZHANG MD 03/15/18 Gemfibrozil (GEMFIBROZIL) 600 Mg Tablet, 1 TAB PO BID, #180 TAB 3 Refills Prov:AKIN ZHANG MD 03/15/18 One Touch Ultra Test Strips (ONE TOUCH ULTRA TEST STRIPS) 1 Each Strip, 100 STRIP MC monthly, #100 STRIP 3 Refills DX:E11.9 use to test BS once daily Prov:AKIN ZHANG MD 04/13/17 Discontinued Reported Medications Naproxen Sodium (ALEVE) 220 Mg Capsule, 220 MG PO QDAY, CAPSULE 08/03/18 Discontinued Scripts Tramadol Hcl (TRAMADOL HCL) 50 Mg Tablet, 50 MG PO Q6H PRN for PAIN, #10 TAB Prov:ALEC ROSA 09/14/18 Lorazepam (ATIVAN) 0.5 Mg Tablet, 0.5 MG PO Q6H PRN for ANXIETY for 30 Days, #30 TAB 1 Refill Prov:SEBASTIAN SHERIFFP-C 09/13/18 Ondansetron Hcl (ZOFRAN) 8 Mg Tablet, 8 MG PO Q8H PRN for NAUSEA for 30 Days, #30 TAB 3 Refills Prov:SEBASTIAN SHERIFFP-C 09/13/18 Prochlorperazine Maleate (Compazine) 10 Mg Tablet, 1 TAB PO Q6-8H PRN for NAUSEA for 30 Days, #30 TAB 3 Refills Prov:SEBASTIAN SHERIFF FILTER PRESS TENDER HEAD-C 09/13/18 Hx Smoking: Yes (1PPD X30 YEARS) Smoking Status: Former Smoker, Heavy Tobacco Smoker Exposure to Second Hand Smoke?: Yes Hx Substance Use Disorder: No Hx Alcohol Use: No Constitutional Vital Sign - Last 24 Hours 10/27/18 10/27/18 10/27/18 10/27/18 14:47 14:49 14:59 15:00 Temp 97.9 Pulse ??? 88 Resp 14 B/P (MAP) 123/81 (95) 123/81 117/80 (92) Pulse Ox 92 O2 Delivery Room Air 10/27/18 10/27/18 10/27/18 10/27/18 15:17 15:30 15:47 16:00 Pulse 90 86 Resp 14 13 B/P (MAP) 109/75 (86) 102/87 (92) Pulse Ox 91 89 Physical Exam General Appearance: The patient is alert, has no immediate need for airway protection and no current signs of toxicity. HEENT: No evidence of abscess of tongue Eyes: Pupils equal and round no injection. Respiratory: Chest is non tender, lungs are clear to auscultation. Cardiac: regular rate and rhythm Gastrointestinal: Abdomen is soft and non tender, no masses, bowel sounds normal. Neck: Neck is supple and non tender. Skin: No rashes or lesions. Medical Decision Making Data Points Laboratory Chemistry Test 10/27/18 16:34 Lactate 2.9 mmol/L (0.7-2.1) Toxicology Test 10/27/18 17:43 Acetone, Qualitative Small Urinalysis Test 10/27/18 16:56 Urine Color Yellow Urine Clarity Clear Urine pH 5.0 pH (4.8-9.5) Urine Specific [place] 1.024 Urine Protein 100 mg/dL (NEGATIVE) Urine Glucose (UA) Negative mg/dL (NEGATIVE) Urine Ketones Trace mg/dL (NEGATIVE) Urine Blood Negative (NEGATIVE) Urine Nitrite Negative (NEGATIVE) Urine Bilirubin Negative (NEGATIVE) Urine Urobilinogen 2.0 mg/dL (0.2-1.9) Urine Leukocyte Esterase Negative (NEGATIVE) Urine RBC None /HPF (0-2/HPF) Urine WBC <1 /HPF (0-5/HPF) Urine Squamous Epithelial Cells Few /LPF (</=FEW) Urine Transitional Epithelial Cells Few /LPF (NONE-FEW) Urine Bacteria Negative /HPF (NONE-FEW) Urine Hyaline Casts Few /LPF (NONE-FEW) Urine Mucus None /HPF (NONE-FEW) ED Course/Re-evaluation ED Course Patient was sent to the emergency department for starvation ketosis. The patient states he is not eating because his tongue is painful. No abdominal pain. No fever/chills. No n/v. Has an anion gap acidosis and a mildly elevated lactate. No evidence of infection. I think his gap is more likely due to a starvation ketosis. The lab does not have a beta hydroxybuterate. He has been started on IV fluids, and will be admitted. Decision to Disposition Date: Oct 27, 2018 Decision to Disposition Time: 18:48 Depart Departure Latest Vital Signs Vital Signs Date Time Temp Pulse Resp B/P (MAP) Pulse Ox O2 Delivery O2 Flow Rate FiO2 10/27/18 16:00 102/87 (92) 10/27/18 15:47 86 13 89 10/27/18 14:59 97.9 Room Air Impression: Primary Impression: Starvation ketoacidosis Condition: Improved Disposition: Admitted from ER Referrals: DONTE MCKEON MD (PCP) SEBASTIAN VAUGHN MD Oct 27, 2018 14:55
[2018-10-27] MEDS ORDERED: NS(*) 0.9% 1000 ML BAG 1,000 ML IV ONE (16:20)
--- NOTE | 2018-10-27 17:03 | RADIOLOGY IMAGING REPORT ---
FACILITY: [facility] - [place] PATIENT NAME: Yakov Sanford : 1940 MR: [id number] V: [id number] EXAM DATE: ORDERING PHYSICIAN: SEBASTIAN VAUGHN TECHNOLOGIST: Location: [facility] Patient: Yakov Sanford : 1940 Visit/Account:[id number] Date of Sevice: 10/27/2018 CHEST SINGLE AP INDICATION: weakness, bicarb 9 COMPARISON: 09/14/2018 FINDINGS: Heart size within normal limits. Right-sided Mediport is unchanged in position. There is no focal infiltrate or lobar consolidation. There is no pneumothorax or pleural effusion. IMPRESSION: 1. No acute cardiopulmonary process. Report Dictated By: Chino Smalls at 10/27/2018 4:52 PM Report E-Signed By: Chino Smalls at 10/27/2018 4:53 PM WSN:[id number]
[2018-10-27 19:00] VITALS: BP 99/65
[2018-10-27] MEDS ORDERED: NS(*) 0.9% 1000 ML BAG 1,000 ML IV PRN (20:05)
[2018-10-27] MEDS ORDERED: ACETAMINOPHEN 325 MG TAB PO PRN (20:05)
[2018-10-27] MEDS ORDERED: INSULIN HUM LISPRO 100 UN/ML 3 ML VIAL SUBQ PRN (20:50)
[2018-10-27] MEDS ORDERED: levETIRAcetam 500 MG TAB PO SCH (21:00)
--- NOTE | 2018-10-27 22:10 | History & Physical ---
History of Present Illness Chief Complaint The patient is a 77 year old male with PMH significant for metastatic colon CA s/p cycle #3 of FOLFIRI and Avastin who presents with pain in his neck and tongue and difficulty swallowing for several weeks. History of Present Illness The patient was diagnosed with metastatic colon cancer this summer. He had a port placed in September and states that shortly thereafter he developed pain in his right neck. He then developed pain in his R jaw, then L jaw and then his tongue. This seemed to worsen after his started receiving chemotherapy. He notes the jaw pain has improved, but the tongue and neck pain have worsened. Last week, the patient had a tonic-clonic seizure and bit his tongue as well. He states the acute pain from that event has improved. He states his tongue is sore deep in the back, right. It hurts to move it and makes it difficult for him to swallow. He has been unable to brush his teeth. He can swallow pills if he takes them one at a time and allows them to "flow in" with the water. He states he has lost 23# because he can't eat. He also has trouble swallowing even water and sometimes he aspirates because he can't make his tongue move properly. The patient has a seizure disorder and was switched from his previous seizure medication that he had been on for many years to Keppra due to interaction of his previous med with his chemotherapy regimen. He was initially placed on Keppra 500mg bid and this was increased after he had a seizure last week. He is now on 1000mg bid. The patient had a CT of the chest, abdomen, and pelvis on 08/11 which showed a circumferential mass of the colon at the hepatic flexure. He was being treated for PEPITO but could not tolerate iron due to diarrhea. Biopsy of the mass revealed moderately differentiated adenocarcinoma. The patient was noted to have a least 5 hepatic metastases as well. No other mets were noted. He began FOLFIRI and Avastin on 09/18/18. He required a 20% dose reduction with cycle #3 due to toxicity. He will be due for cycle #4 around October 31. History Problems: (1) Anemia Status: Chronic (2) Colon cancer Status: Chronic (3) Seizure disorder Onset Date: 04/05/2014 Status: Chronic (4) Mixed hyperlipidemia Status: Chronic (5) Acquired hypothyroidism Status: Chronic (6) Controlled type 2 diabetes mellitus without complication, without long-term current use of insulin Status: Chronic (7) Hx of fracture of hip Status: Resolved (8) History of lumbar laminectomy Status: Resolved (9) History of carpal tunnel release Status: Resolved (10) Hx of tonsillectomy Status: Resolved (11) Hx of cholecystectomy Status: Resolved (12) History of total left hip replacement Status: Resolved (13) History of total right hip replacement Status: Resolved Home Meds Active Scripts Insulin Aspart 100 Un/Ml Pen (NOVOLOG FLEXPEN) 100 Unit/1 Ml Insuln.pen, 4-10 UNIT SQ TID, #1 BOX 3 Refills 150-200: 4, 201-250: 6, 251-300: 8, 301 to 350: 10, 351-400: 11, >400 : 12 Prov:DONTE MCKEON MD 10/27/18 Levetiracetam (LEVETIRACETAM) 1,000 Mg Tablet, 1000 MG PO BID, #60 TAB Prov:DONTE MCKEON MD 10/19/18 Omeprazole (OMEPRAZOLE) 20 Mg Tablet.dr, 20 MG PO QDAY for 30 Days, #30 TAB 3 Refills Prov:SEBASTIAN SHERIFF W IT APPLICATION ARCHITECT-C 09/26/18 Levothyroxine Sodium (SYNTHROID) 125 Mcg Tablet, 125 MCG PO QDAY, #90 TAB 3 Refills Prov:DONTE MCKEON MD 09/19/18 Isopropyl Alcohol (ALCOH-WIPE) 1 Each Towelette, EACH MC DAILY, #1 Prov:DONTE MCKEON MD 09/13/18 Pen Needle, Diabetic, Safety (PEN NEEDLE) 1 Each Dis.needle, EACH MC DAILY, #1 Prov:DONTE MCKEON MD 09/13/18 Metformin Hcl (METFORMIN HCL) 1,000 Mg Tablet, 1 TAB PO BID, #180 TAB 3 Refills Prov:AKIN ZHANG MD 03/15/18 Gemfibrozil (GEMFIBROZIL) 600 Mg Tablet, 1 TAB PO BID, #180 TAB 3 Refills Prov:AKIN ZHANG MD 03/15/18 One Touch Ultra Test Strips (ONE TOUCH ULTRA TEST STRIPS) 1 Each Strip, 100 STRIP MC monthly, #100 STRIP 3 Refills DX:E11.9 use to test BS once daily Prov:AKIN ZHANG MD 04/13/17 Discontinued Reported Medications Naproxen Sodium (ALEVE) 220 Mg Capsule, 220 MG PO QDAY, CAPSULE 08/03/18 Discontinued Scripts Meloxicam (MELOXICAM) 15 Mg Tablet, 15 MG PO QDAY, #30 TAB 5 Refills Prov:DONTE MCKEON MD 10/27/18 Tramadol Hcl (TRAMADOL HCL) 50 Mg Tablet, 50 MG PO Q6H PRN for PAIN, #10 TAB Prov:ALEC ROSA 09/14/18 Lorazepam (ATIVAN) 0.5 Mg Tablet, 0.5 MG PO Q6H PRN for ANXIETY for 30 Days, #30 TAB 1 Refill Prov:SEBASTIAN SHERIFF IT APPLICATION ARCHITECT-C 09/13/18 Ondansetron Hcl (ZOFRAN) 8 Mg Tablet, 8 MG PO Q8H PRN for NAUSEA for 30 Days, #30 TAB 3 Refills Prov:SEBASTIAN SHERIFF IT APPLICATION ARCHITECT-C 09/13/18 Prochlorperazine Maleate (Compazine) 10 Mg Tablet, 1 TAB PO Q6-8H PRN for NAUSEA for 30 Days, #30 TAB 3 Refills Prov:DOCUMENT DESIGN SPECIALIST,SEBASTIAN Rader IT APPLICATION ARCHITECT-C 09/13/18 Allergies: Coded Allergies: influenza virus vaccine, specific (Unverified Allergy, Intermediate, fever, 10/27/18) Patient History: Bone cancer FATHER, , Age:64 (mets) FH: blindness FATHER, , Age:64, Onset:59 FH: diabetes mellitus SISTER, Age:68 FH: epilepsy Son, Age:44 FH: heart disease MOTHER, , Age:88 FH: hemochromatosis BROTHER, Age:69 BROTHER, Age:63 BROTHER, Age:58 Son, Age:44 FH: lung cancer FATHER, , Age:64 Hemochromatosis Hemochromatosis Hyperglycemia BROTHER, Age:63 Other Social/Family Hx The patient is and lives in [place] with his and son. He is retired. 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 Hx Smoking: Yes (1PPD X30 YEARS) Smoking Status: Former Smoker Exposure to Second Hand Smoke?: Yes Caffeine Intake: Soda Caffeine/Cups Per Day: 1LITER/ DAY NONE IN THE LAST 2 WEEKS Hx Alcohol Use: No Hx Substance Use Disorder: No Social Drug Use: Never History of IV Drug Use: No Review of Systems Constitutional: Weight Gain; No Fever ENT: Hearing Loss Cardiovascular: Other (Hx of rheumatic fever as a child. Had a murmur as a child.); No Chest Pain Respiratory: Shortness of Breath (When climbing stairs.); No Cough Gastrointestinal: Diarrhea, Other (Dysphagia due to pain in tongue and neck.) Genitourinary: No Dysuria Musculoskeletal: Other (Hx of back pain, s/p lumbar surgery.) Exam Vital Signs Vital Signs Date Time Temp Pulse Resp B/P (MAP) Pulse Ox O2 Delivery O2 Flow Rate FiO2 10/27/18 19:05 81 12 91 10/27/18 19:00 99/65 (76) 10/27/18 14:59 97.9 Room Air General Appearance: Alert, Awake, No Acute Distress, Afebrile Neuro: No Gross deficits Eyes: PERRLA ENT: Other (Tongue is tender to palpation posteriorly, R side > L side) Neck: Other (Tender enlarged anterior cervical LN. ) Cardiovascular: Regular Rate and Rhythm (No murmur.), No Edema Respiratory: No Respiratory Distress, Clear to Auscultation GI: Abd Soft and Non-Tender Lymph: Other (R anterior cervical LN enlarged and tender to palpation.) Extremities: Warm, Pulses (Full and equal throughout.), Perfused Integumentary: Other (Small abrasion over L forehead.) Psych: Alert & Oriented X3, Appropriate Mood & Affect Medical Decision Making Data Points Item Value Date Time Urine Color Yellow 10/27/181655 Urine Clarity Clear 10/27/181655 Urine pH 5.0 pH 10/27/181655 Urine Specific [place] 1.024 10/27/181655 Urine Protein 100 mg/dL 10/27/181655 Urine Glucose (UA) Negative mg/dL 10/27/181655 Urine Ketones Trace mg/dL 10/27/181655 Urine Blood Negative 10/27/181655 Urine Nitrite Negative 10/27/181655 Urine Bilirubin Negative 10/27/181655 Urine Urobilinogen 2.0 mg/dL 10/27/181655 Urine Leukocyte Esterase Negative 10/27/181655 Urine RBC None /HPF 10/27/181655 Urine WBC <1 /HPF 8/23/19 1656 Urine Squamous Epithelial Cells Few /LPF 10/27/18 1656 Urine Transitional Epithelial Cells Few /LPF 10/27/18 1656 Urine Bacteria Negative /HPF 10/27/18 1656 Urine Hyaline Casts Few /LPF 10/27/18 1656 Urine Mucus None /HPF 10/27/18 1656 Acetone, Qualitative Small 10/27/18 1743 Lactate 2.9 mmol/L H 10/27/18 1634 Blood Gas Patient Temperature Unknown DEGREES 10/27/18 1634 Venous Blood pH 7.25 L 10/27/18 1634 Venous Blood Partial Pressure CO2 31 mmHg 10/27/18 1634 Venous Blood Partial Pressure O2 51 mmHg 10/27/18 1634 Venous Blood HCO3 14 mmol/L 10/27/18 1634 Venous Blood Oxygen Saturation 81 % 10/27/18 1634 Venous Blood Base Excess -12 mmol/L 10/27/18 1634 Oxygen Liters/Minute Unknown 10/27/18 1634 EKG / Imaging [facility] PATIENT NAME: Yakov Sanford : 1940 MR: [id number] V: [id number] EXAM DATE: [id number] ORDERING PHYSICIAN: SEBASTIAN VAUGHN TECHNOLOGIST[place] [facility] [place]akov [place] : 1940 Visit/Account:[id number] Date of Sevice: 10/27/2018 CHEST SINGLE AP INDICATION: weakness, bicarb 9 COMPARISON: 09/14/2018 FINDINGS: Heart size within normal limits. Right-sided Mediport is unchanged in position. There is no focal infiltrate or lobar consolidation. There is no pneumothorax or pleural effusion. IMPRESSION: 1. No acute cardiopulmonary process. Report Dictated By: Chino Smalls at 10/27/2018 4:52 PM Report E-Signed By: Chino Smalls at 10/27/2018 4:53 PM WSN:[id number] Pre-Admit Course Medical Record Review: Yes Assessment and Plan Problems: (1) Dysphagia Status: Acute Assessment & Plan: Due to tongue pain and dysfunction. Symptoms have been present now for several weeks. He also has an enlarged right anterior cervical LN. Will order CT of the soft tissues of the neck with and without contrast. Will order STOCK TRADER consult as well. Will start IV fluids. Discussed potentially placing a soft FT through his nose or possibly a PEG tube. He will discuss with his tomorrow. (2) Starvation ketoacidosis Status: Acute Assessment & Plan: Will hydrate and evaluate his dysphagia (see above). Discussed FT as noted above. (3) Colon carcinoma metastatic to liver Status: Chronic Assessment & Plan: Cancer Center is managing. He is getting chemotherapy (see HPI). (4) Weight loss Status: Acute Assessment & Plan: The patient has been unable to eat well for several weeks. Evaluation and possible FT as above. (5) Insulin-requiring or dependent type II diabetes mellitus Status: Chronic Assessment & Plan: Will place on SSI. Hold metformin for now due to lactic acidosis. (6) Seizure disorder Onset Date: 04/05/2014 Status: Chronic Assessment & Plan: Continue Keppra 1000mg bid. (7) Mixed hyperlipidemia Status: Chronic Assessment & Plan: Continue gemfibrozil. (8) Acquired hypothyroidism Status: Chronic Assessment & Plan: Continue levothyroxine. Time Spent on Plan of Care: < 30 min Venous Thromboembolism Antithrombotics Is Pt On Any Antithrombotics?: Yes Exam Sepsis Risk: No Definite Risk KRYSTA GIRON MD Oct 27, 2018 22:10
[2018-10-28] MEDS ORDERED: LEVOTHYROXINE SOD 0.125 MG TAB PO SCH (06:00)
[2018-10-28] MEDS ORDERED: GEMFIBROZIL 600 MG TAB PO SCH (07:30)
[2018-10-28] MEDS ORDERED: metFORMIN HCL 500 MG TAB PO SCH (08:00)
[2018-10-28] MEDS ORDERED: PANTOPRAZOLE SOD 40 MG TABEC PO SCH (09:00)
[2018-10-28] MEDS ORDERED: ENOXAPARIN 40 MG/0.4ML SYR SC SCH (09:00)
== END 2018-10-28 00:01 | disposition still patient (30) | DRG 951 ==
LOC: ER 15:12 → MED 19:03
PROVIDERS: ADMIT Internal Medicine; ATTEND Internal Medicine
DX: Z02.9 Encounter for administrative examinations, unspecified (principal)
CPT/HCPCS: 36415; 36416; 71045; 81001; 82009; 82040; 82247; 82310; 82374; 82435; 82565; 82803; 82947; 82948; 83605; 84075; 84132; 84155; 84295; 84450; 84460; 84520; 85025; J7030